=== PATIENT | male | born 1955 | race Caucasian/White ===

== ENCOUNTER → 2017-02-13 | Outpatient (CLI) | payer MEDICARE, OTHER | LOC: RT 12:18 | DX: R09.02 Hypoxemia (principal) | CPT/HCPCS: 36600; 71020-FX; 82803; 94060; 94729 ==

== ENCOUNTER → 2017-03-07 | Outpatient (CLI) | payer MEDICARE, OTHER | LOC: SLEEP 12:28 | DX: G47.33 Obstructive sleep apnea (adult) (pediatric) (principal) | CPT/HCPCS: 95810 ==